=== PATIENT | female | born 1985 | race Caucasian/White ===

== ENCOUNTER 2021-01-17 07:33 | Inpatient (IN) | payer BC ==
[~2021-01-17] VITALS: Ht 172.7 cm; Wt 106.0 kg
[2021-01-17 11:00] VITALS: BP 132/90
[2021-01-17] MEDS ORDERED: magnesium Cl slow-release 64mg tablet PO PRN (13:00)
[2021-01-17] MEDS ORDERED: magnesium 2GM in 50ml NS 50 ML IV PRN (13:00)
[2021-01-17] MEDS ORDERED: HYDROcodone/acetaminophen 10/325mg tab PO PRN (13:00)
[2021-01-17] MEDS ORDERED: magnesium hydroxide 30ml (MOM) UD suspension PO PRN (13:00)
[2021-01-17] MEDS ORDERED: potassium CL 10mEq/100ml bag 100 ML IV PRN (13:00)
[2021-01-17] MEDS ORDERED: acetaminophen 650mg rectal suppository RC PRN (13:00)
[2021-01-17] MEDS ORDERED: potassium Cl 20 mEq SR tablet PO PRN ×2 (13:00)
[2021-01-17] MEDS ORDERED: acetaminophen 325mg tablet PO PRN (13:00)
[2021-01-17] MEDS ORDERED: magnesium 4gm in 100ml NS 100 ML IV PRN (13:00)
[2021-01-17] MEDS ORDERED: bisacodyl 10mg suppository rectal RC PRN (13:00)
[2021-01-17] MEDS ORDERED: morphine 2 MG/ML inj. syringe IV PRN ×2 (13:00)
[2021-01-17] MEDS ORDERED: mag hydrox/Alum hydrox/simeth 30ml oral suspension PO PRN (13:00)
[2021-01-17] MEDS ORDERED: diphenhydrAMINE 25mg capsule PO PRN (13:00)
[2021-01-17] MEDS ORDERED: NO HOME MEDS (13:31)
[2021-01-17] MEDS: acetaminophen 325mg tablet PO PRN (15:03)
[2021-01-17] MEDS: normal saline 1000ml 1,000 ML IV SCH (15:04)
[2021-01-17 15:50] LABS: COLOR,URINE YELLOW (Yellow); GLUCOSE, URINE NEGATIVE (Neg); KETONES,URINE >=80 mg/dl (Neg); LEUKOCYTE ESTERASE ,URINE NEGATIVE (Neg); NITRITES, URINE NEGATIVE (Neg); OCCULT BLOOD,URINE TRACE-INTACT (Neg); PROTEIN,URINE NEGATIVE (Neg); UROBILINOGEN,URINE 0.2 E.U/dL (0.2-1.0)
[2021-01-17 15:52] LABS: URINE AMPHETAMINE SCREEN NEGATIVE (Neg); URINE BARBITUATE SCREEN NEGATIVE (Neg); URINE BENZODIAZEPINES SCREEN NEGATIVE (Neg); URINE CANNABINOID SCREEN NEGATIVE (Neg); URINE COCAINE SCREEN NEGATIVE (Neg); URINE METHADONE SCREEN NEGATIVE (Neg); URINE OPIATE SCREEN NEGATIVE (Neg); URINE PHENCYCLIDINE SCREEN NEGATIVE (Neg)
[2021-01-17 15:56] LABS: CLARITY,URINE SLIGHTLY CLOUDY (Clear); UA COLLECTION TYPE NON-SPECIFIED
[2021-01-17 15:59] LABS: MUCUS STRANDS FEW /LPF (Neg); SQUAMOUS EPITHELIAL CELL,UR FEW /LPF (FEW)
[2021-01-17 16:00] LABS: WBC,URINE 0-4 /HPF (0-4)
[2021-01-17 16:01] LABS: BACTERIA,URINE FEW /HPF (Neg); RBC,URINE 0-2 /HPF (0-2)
[2021-01-17 18:00] VITALS: BP 126/63
--- NOTE | 2021-01-17 18:06 | NUR ---
Admitted from [place] w epigastric pain. VSS on RA. Pain controlled w tylenol. NPO, waiting on plan. Report given to Huy WYNN
[2021-01-17] MEDS: docusate sod 100mg capsule PO SCH (19:28)
[2021-01-17] MEDS: K and/or MAG REPLACEMENT MC SCH (20:00)
[2021-01-17] MEDS: HYDROcodone/acetaminophen 5mg/325mg tablet PO PRN (20:43)
[2021-01-17] MEDS: ondansetron/PF 4mg/2ml inj IV PRN (22:17)
[2021-01-18] VITALS (13 sets, daily range): BP systolic 108–153; BP diastolic 56–93
[2021-01-18] MEDS: normal saline 1000ml 1,000 ML IV SCH ×3 (01:22→18:06)
[2021-01-18 01:44] LABS: URINE HCG NEGATIVE (NEG)
[2021-01-18] MEDS: HYDROcodone/acetaminophen 5mg/325mg tablet PO PRN ×2 (03:05→15:24)
--- NOTE | 2021-01-18 05:50 | NUR ---
resting in bed. iv patent. has been npo since midnight . pain controlled with norco
[2021-01-18 06:57] LABS: BASOPHILS % (AUTO) 0.8 % (0-1); EOSINOPHILS # (AUTO) 0.1 X10'3 (0-0.9); EOSINOPHILS % (AUTO) 1.7 % (0-6); HEMATOCRIT 32.4 % (35.0-45.0); HEMOGLOBIN 10.8 g/dl (12.0-16.0); LYMPHOCYTES # (AUTO) 1.2 X10'3 (1.1-4.8); LYMPHOCYTES % (AUTO) 19.6 % (21-51); MEAN CORPUSCULAR HEMOGLOBIN 29.9 PG (27.0-31.0); MEAN CORPUSCULAR HGB CONC 33.4 g/dL (33.0-36.5); MEAN CORPUSCULAR VOLUME 89.6 FL (78-98); MEAN PLATELET VOLUME 7.1 FL (7.4-10.4); MONOCYTES # (AUTO) 0.6 X10'3 (0-0.9); MONOCYTES % (AUTO) 9.7 % (2-12); NEUTROPHILS % (AUTO) 68.2 % (42-75); PLATELET COUNT 452 X10'3 (140-440); RED BLOOD COUNT 3.62 X10'6 (4.20-5.60); RED CELL DISTRIBUTION WIDTH 13.2 % (11.5-14.5); WHITE BLOOD COUNT 5.9 X10'3 (4.5-11.0)
--- NOTE | 2021-01-18 07:00 | NUR ---
Patient in room [facility]. I have received report from TIANNA Son and had the opportunity to ask questions and assume patient care.
[2021-01-18] MEDS: acetaminophen 325mg tablet PO PRN (07:24)
[2021-01-18] MEDS: docusate sod 100mg capsule PO SCH ×3 (07:25→20:00)
[2021-01-18 07:31] LABS: ALANINE AMINOTRANSFERASE 33 U/L (12-78); ALBUMIN 2.7 G/DL (3.4-5.0); ALBUMIN/GLOBULIN RATIO 0.7 (1.1-1.5); ALKALINE PHOSPHATASE 67 IU/L (46-116); ANION GAP 9 (8-16); ASPARTATE AMINO TRANSFERASE 14 U/L (10-37); BILIRUBIN,TOTAL 0.3 MG/DL (0.1-1.0); BLOOD UREA NITROGEN 8 MG/DL (7-18); BUN/CREATININE RATIO 11.4 (6.6-38.0); CALCIUM 7.9 MG/DL (8.5-10.1); CHLORIDE 103 MMOL/L (99-107); CHOL/HDL RATIO 2.8 (0.00-4.99); CHOLESTEROL 123 MG/DL (0-200); GLUCOSE 87 MG/DL (70-104); HDL CHOLESTEROL 44 MG/DL (35-60); LDL CHOLESTEROL 67 MG/DL (50-100); LIPASE 65 U/L (73-393); PHOSPHORUS 2.9 MG/DL (2.3-4.5); SODIUM 136 MMOL/L (135-145); TOTAL CARBON DIOXIDE 23.6 MMOL/L (24-32); TOTAL PROTEIN 6.8 G/DL (6.4-8.2); TRIGLYCERIDES 47 MG/DL (20-135); eGFR > 90 ML/MIN
[2021-01-18] MEDS: K and/or MAG REPLACEMENT MC SCH ×2 (08:00→20:00)
--- NOTE | 2021-01-18 11:20 | NUR ---
Pt to GI lab via WC for ERCP.
[2021-01-18] MEDS ORDERED: MIDAZolam 1 MG/ML 5ML VIAL ONE (11:53)
[2021-01-18] MEDS ORDERED: LIDOcaine Viscous 15ml cup ONE (11:54)
[2021-01-18] MEDS ORDERED: fentaNYL/PF 50MCG/1 ML 2ML syringe ONE (11:54)
[2021-01-18] MEDS ORDERED: levoFLOXACIN-Levaquin 500mg/D5 100 ML IV ONE (11:54)
[2021-01-18] MEDS ORDERED: diphenhydrAMINE 50 mg/ml inj ONE (11:54)
[2021-01-18] MEDS ORDERED: iohexol 300 MG/1 ML 50ml polymer ONE (11:55)
[2021-01-18] MEDS ORDERED: glucagon, human recombinant 1mg kit ONE (11:55)
[2021-01-18 16:00] LABS: % IRON SATURATION 8 % (11-46); IRON 19 UG/DL (49-151); TOTAL IRON BINDING CAPACITY 226 UG/DL (259-388)
[2021-01-18] MEDS ORDERED: ketorolac trometh. 30mg/ml inj. IV ONE (17:55)
--- NOTE | 2021-01-18 18:33 | NUR ---
Problems reprioritized. Patient report given, questions answered & plan of care reviewed with SHELIA Son.
[2021-01-19] VITALS: BP 135/85
[2021-01-19] MEDS: ketorolac trometh. 30mg/ml inj. IV PRN ×3 (02:03→21:59)
[2021-01-19] MEDS: normal saline 1000ml 1,000 ML IV SCH ×2 (05:56→15:43)
[2021-01-19 06:45] LABS: BASOPHILS % (AUTO) 0.4 % (0-1); EOSINOPHILS # (AUTO) 0.1 X10'3 (0-0.9); HEMATOCRIT 32.9 % (35.0-45.0); HEMOGLOBIN 11.3 g/dl (12.0-16.0); LYMPHOCYTES # (AUTO) 0.9 X10'3 (1.1-4.8); LYMPHOCYTES % (AUTO) 12.3 % (21-51); MEAN CORPUSCULAR HEMOGLOBIN 30.3 PG (27.0-31.0); MEAN CORPUSCULAR HGB CONC 34.2 g/dL (33.0-36.5); MEAN CORPUSCULAR VOLUME 88.5 FL (78-98); MONOCYTES # (AUTO) 0.5 X10'3 (0-0.9); MONOCYTES % (AUTO) 7.2 % (2-12); NEUTROPHILS # (AUTO) 5.8 X10'3 (1.8-7.7); NEUTROPHILS % (AUTO) 79.1 % (42-75); PLATELET COUNT 458 X10'3 (140-440); RED BLOOD COUNT 3.72 X10'6 (4.20-5.60); RED CELL DISTRIBUTION WIDTH 13.2 % (11.5-14.5); WHITE BLOOD COUNT 7.4 X10'3 (4.5-11.0)
[2021-01-19 06:48] LABS: ALANINE AMINOTRANSFERASE 32 U/L (12-78); ALBUMIN 2.7 G/DL (3.4-5.0); ALBUMIN/GLOBULIN RATIO 0.6 (1.1-1.5); ALKALINE PHOSPHATASE 74 IU/L (46-116); ANION GAP 11 (8-16); ASPARTATE AMINO TRANSFERASE 12 U/L (10-37); BILIRUBIN,TOTAL 0.4 MG/DL (0.1-1.0); BLOOD UREA NITROGEN 7 MG/DL (7-18); BUN/CREATININE RATIO 10.9 (6.6-38.0); CALCIUM 8.2 MG/DL (8.5-10.1); CHLORIDE 103 MMOL/L (99-107); CREATININE 0.64 MG/DL (0.40-0.90); GLUCOSE 91 MG/DL (70-104); MAGNESIUM 1.9 MG/DL (1.5-2.4); PHOSPHORUS 2.6 MG/DL (2.3-4.5); POTASSIUM 3.9 MMOL/L (3.5-5.1); SODIUM 137 MMOL/L (135-145); TOTAL CARBON DIOXIDE 23.3 MMOL/L (24-32); TOTAL PROTEIN 7.5 G/DL (6.4-8.2); eGFR > 90 ML/MIN
[2021-01-19 07:00] VITALS: BP 134/93
[2021-01-19 07:05] LABS: LIPASE 9843 U/L (73-393)
[2021-01-19] MEDS: docusate sod 100mg capsule PO SCH ×2 (08:00→20:00)
[2021-01-19] MEDS: K and/or MAG REPLACEMENT MC SCH ×2 (08:00→20:00)
[2021-01-19] MEDS: ondansetron/PF 4mg/2ml inj IV PRN (08:08)
[2021-01-19] MEDS: acetaminophen 325mg tablet PO PRN ×2 (08:08→16:06)
[2021-01-19 12:00] VITALS: BP 134/82
[2021-01-19] MEDS ORDERED: oxyCODONE/APAP 5-325mg tablet PO PRN (13:05)
--- NOTE | 2021-01-19 14:28 | NUR ---
PAGER ID: [phone] MESSAGE: Kamila Lojan- Pt refused Percocet decided she wanted to stick with [place], Toradol, and Tylenol. I was going to page you to FELICITY about it but went to lunch. My apologies. Thank you. [phone] :)
[2021-01-19] MEDS ORDERED: iohexol 300mg/ml 100ml inj. ONE (14:33)
--- NOTE | 2021-01-19 18:13 | NUR ---
Problems reprioritized. Patient report given, questions answered & plan of care reviewed with Cricket WYNN Traveler.
[2021-01-19 20:00] VITALS: BP 134/87
[2021-01-19] MEDS ORDERED: heparin 10,000 units/1 ML INJ IV PRN (22:15)
[2021-01-19] MEDS ORDERED: heparin 10,000 units/1 ML INJ IV ONE (22:15)
[2021-01-20] VITALS: BP 109/60
[2021-01-20] MEDS: heparin 25,000 UNIT/250ml bag 250 ML IV SCH ×2 (02:35→12:19)
[2021-01-20] MEDS: normal saline 1000ml 1,000 ML IV SCH ×2 (02:36→10:30)
--- NOTE | 2021-01-20 06:01 | NUR ---
LATE ENTRY 0100 PT EXPRESSED CONCERN ABOUT PLAN OF CARE. NOTIFIED CHARGE NURSE GENIE WYNN . GENIE SPOKE TO PT. AND STATED SHE WILL SPEAK TO AM CHARGE NURSE SO THAT MD CAN SPEAK TO PT
--- NOTE | 2021-01-20 06:03 | NUR ---
SPOKE TO [facility] IN LAB TO INFORMED NEXT PTT SHOULD BE DRAWN AT 0835
--- NOTE | 2021-01-20 06:30 | NUR ---
Patient in room [facility]. I have received report from Cricket WYNN traveler and had the opportunity to ask questions and assume patient care.
[2021-01-20 06:33] LABS: BASOPHILS % (AUTO) 0.4 % (0-1); EOSINOPHILS # (AUTO) 0.1 X10'3 (0-0.9); EOSINOPHILS % (AUTO) 1.6 % (0-6); HEMATOCRIT 32.3 % (35.0-45.0); HEMOGLOBIN 10.9 g/dl (12.0-16.0); LYMPHOCYTES # (AUTO) 1.5 X10'3 (1.1-4.8); LYMPHOCYTES % (AUTO) 23.2 % (21-51); MEAN CORPUSCULAR HEMOGLOBIN 29.9 PG (27.0-31.0); MEAN CORPUSCULAR HGB CONC 33.8 g/dL (33.0-36.5); MEAN CORPUSCULAR VOLUME 88.5 FL (78-98); MONOCYTES # (AUTO) 0.6 X10'3 (0-0.9); MONOCYTES % (AUTO) 10.1 % (2-12); NEUTROPHILS # (AUTO) 4.1 X10'3 (1.8-7.7); NEUTROPHILS % (AUTO) 64.7 % (42-75); PLATELET COUNT 435 X10'3 (140-440); RED BLOOD COUNT 3.65 X10'6 (4.20-5.60); WHITE BLOOD COUNT 6.3 X10'3 (4.5-11.0)
[2021-01-20 06:50] LABS: ALANINE AMINOTRANSFERASE 23 U/L (12-78); ALBUMIN 2.6 G/DL (3.4-5.0); ALBUMIN/GLOBULIN RATIO 0.6 (1.1-1.5); ALKALINE PHOSPHATASE 71 IU/L (46-116); ANION GAP 9 (8-16); ASPARTATE AMINO TRANSFERASE 12 U/L (10-37); BILIRUBIN,TOTAL 0.3 MG/DL (0.1-1.0); BLOOD UREA NITROGEN 5 MG/DL (7-18); BUN/CREATININE RATIO 8.5 (6.6-38.0); CALCIUM 8.1 MG/DL (8.5-10.1); CHLORIDE 105 MMOL/L (99-107); CREATININE 0.59 MG/DL (0.40-0.90); GLUCOSE 97 MG/DL (70-104); LIPASE 622 U/L (73-393); MAGNESIUM 1.9 MG/DL (1.5-2.4); PHOSPHORUS 3.1 MG/DL (2.3-4.5); POTASSIUM 3.4 MMOL/L (3.5-5.1); SODIUM 139 MMOL/L (135-145); TOTAL CARBON DIOXIDE 25.4 MMOL/L (24-32); TOTAL PROTEIN 6.7 G/DL (6.4-8.2); eGFR > 90 ML/MIN
--- NOTE | 2021-01-20 06:51 | NUR ---
LATE ENTRY 0015 PT DIFFICULT STICK OBTAINED BLOOD FOR PTT. WAS TOLD BY LAB BLOOD WAS HEMOLYZED. WILL ATTEMPT ANOTHER DRAW.
--- NOTE | 2021-01-20 06:53 | NUR ---
LATE ENTRY 0110 I KWAME 2ND PTT SPECIMEN AND SENT TO LAB
[2021-01-20 08:00] VITALS: BP 113/66
[2021-01-20] MEDS: docusate sod 100mg capsule PO SCH (08:00)
[2021-01-20] MEDS: K and/or MAG REPLACEMENT MC SCH (08:00)
[2021-01-20] MEDS: acetaminophen 325mg tablet PO PRN (09:54)
[2021-01-20 12:00] VITALS: BP 123/78
[2021-01-20] MEDS ORDERED: APIX5TAB3 PO (13:45)
[2021-01-20] MEDS ORDERED: ASCO500C18 PO (13:58)
[2021-01-20] MEDS ORDERED: FERR325T28 PO (13:58)
[2021-01-20] MEDS ORDERED: apixaban 5mg tablet PO ONE (14:00)
--- NOTE | 2021-01-20 14:03 | NUR ---
Dr Nunes called requested patient heparin gtt be stopped and patient to receive one time dose of 10 mg PO Eliquis now. Also, would like to have us change her diet to a full liquid diet, give her a coupon for Eliquis and to have case management provide patient with information for [facility] information. Patient does have the information packet to become establised with [facility].
--- NOTE | 2021-01-20 16:04 | NUR ---
PAGER ID: [phone] MESSAGE: mike Mccullough #[phone]- Pt is DC, wants to know if she needs to have any work limitations. 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 Does she need light duty for a while?? Please advise. Lilo Stern [phone]
--- NOTE | 2021-01-20 16:30 | NUR ---
Pt Dc to home with angi, pt is A & O and in no apparent distress. Pt and angi verbalize understanding of ALL DC orders and the importance of getting establish with PCP and following up with [facility]. Pt's IV cath removed intact. Pt got dressed and walked front. pt refused wheelchair.
== END 2021-01-20 16:30 | disposition home or self-care (01) | DRG 444 ==
LOC: SUR 3N 10:44 → UNDOADMIN 10:44 → SUR 3N 13:01
PROVIDERS: ADMIT Internal Medicine; ATTEND Internal Medicine
PROC: 0F7D8DZ Dilation of Pancreatic Duct with Intraluminal Device, Via Natural or Artificial Opening Endoscopic (ICD-10-PCS; principal; 2021-01-18)
PROC: 0FPD8DZ Removal of Intraluminal Device from Pancreatic Duct, Via Natural or Artificial Opening Endoscopic (ICD-10-PCS; 2021-01-18)
PROC: BW211ZZ Computerized Tomography (CT Scan) of Abdomen and Pelvis using Low Osmolar Contrast (ICD-10-PCS; 2021-01-19)
DX: K80.50 Calculus of bile duct without cholangitis or cholecystitis without obstruction (principal); I81 Portal vein thrombosis; K85.90 Acute pancreatitis without necrosis or infection, unspecified; D64.9 Anemia, unspecified; E66.9 Obesity, unspecified; K83.8 Other specified diseases of biliary tract; D18.03 Hemangioma of intra-abdominal structures; E61.1 Iron deficiency; R16.0 Hepatomegaly, not elsewhere classified; R74.8 Abnormal levels of other serum enzymes; Z83.3 Family history of diabetes mellitus; Z98.891 History of uterine scar from previous surgery; Z68.35 Body mass index [BMI] 35.0-35.9, adult; Z46.59 Encounter for fitting and adjustment of other gastrointestinal appliance and device
CPT/HCPCS: 36415; 43262; 74178; 80053; 80061; 80305; 81001; 81025; 82728; 83036; 83540; 83550; 83690; 83735; 84100; 84145; 84443; 85025; 85730; 87081; 99152; 99153; A4620; C1769; C1773; C2617; C2625; G0378; J1200; J1610; J1644; J1885; J1956; J2250; J2405; J3010; J7030; J7040; Q9967